=== PATIENT | female | born 1990 | race Caucasian/White ===

== ENCOUNTER 2020-05-06 22:42 | Emergency (ER) | payer SELFPAY ==
[~2020-05-06] VITALS: Ht 170.2 cm; Wt 68.0 kg
[2020-05-06] MEDS ORDERED: SODIUM CHLORIDE 0.9% 1,000 ML IV ONE ×2 (23:35→23:45)
[2020-05-06] MEDS ORDERED: LORAZEPAM 2MG/ML CPJ IV ONE (23:45)
[2020-05-06] MEDS ORDERED: FOLIC ACID 1 MG, THIAMINE HCL 100 MG, MVI, ADULT NO.1 10 ML in DEXTROSE 5% WATER 1,000 ML IV ONE ×4 (23:45)
[2020-05-07 00:27] LABS: BASOPHILS % 0.2 % (0.0-2.0); EOSINOPHILS % 0.1 % (0.0-5.0); HEMATOCRIT. 42.1 % (36.0-48.0); HEMOGLOBIN. 14.2 g/dL (12.0-16.0); MEAN CORPUSCULAR HEMOGLOBIN 31.4 pg (28.0-32.0); MEAN CORPUSCULAR VOLUME 92.9 fL (81.0-99.0); MEAN PLATELET VOLUME 8.8 fl (7.4-10.4); MONOCYTES % 4.7 % (2.0-8.0); PLATELET 161 x1000/uL (130-400); RED BLOOD CELL COUNT 4.53 mill/uL (4.2-5.4); RED CELL DISTRIBUTION WIDTH 14.1 % (11.6-14.6)
[2020-05-07 00:29] LABS: CHLORIDE 104 mEq/L (98-107)
[2020-05-07 00:34] LABS: ETHANOL BLOOD < 10 mg/dL
[2020-05-07 00:39] LABS: CREATINE KINASE 343 IU/L (26-192)
[2020-05-07 00:43] LABS: HCG SCREEN NEGATIVE
[2020-05-07 01:31] LABS: CLARITY URINE CLEAR (CLEAR); COLOR URINE YELLOW (YELLOW); KETONES URINE 1+ (NEGATIVE); LEUKOCYTE ESTERASE URINE NEGATIVE (NEGATIVE); NITRITE URINE NEGATIVE (NEGATIVE); OCCULT BLOOD URINE NEGATIVE (NEGATIVE); PROTEIN URINE TRACE (NEGATIVE); SPECIFIC GRAVITY URINE 1.022 (1.005-1.030); UROBILINOGEN URINE 0.2 E.U./dL (0.2-1.0)
[2020-05-07 01:34] LABS: PROTHROMBIN TIME 10.3 sec (9.6-11.0)
[2020-05-07 01:41] LABS: *BARBITURATES SCREEN URINE NEGATIVE (NEGATIVE); *BENZODIAZEPINES SCREEN URINE NEGATIVE (NEGATIVE)
[2020-05-07 01:42] LABS: METHADONE URINE SCREEN NEGATIVE (NEGATIVE); PHENCYCLIDINE URINE SCREEN NEGATIVE (NEGATIVE)
[2020-05-07 01:44] LABS: *AMPHETAMINES SCREEN URINE PRESUMTIVE POSITIVE (NEGATIVE); *COCAINE SCREEN URINE PRESUMTIVE POSITIVE (NEGATIVE); CANNABINOID URINE SCREEN PRESUMTIVE POSITIVE (NEGATIVE); OPIATES URINE SCREEN PRESUMTIVE POSITIVE (NEGATIVE)
[2020-05-07] MEDS ORDERED: LORAZEPAM 2MG/ML CPJ IV PRN (05:45)
[2020-05-07] MEDS ORDERED: ONDANSETRON HCL 4MG/2ML INJ IV PRN (05:45)
[2020-05-07] MEDS ORDERED: ACETAMINOPHEN 325MG TABLET PO PRN (05:45)
[2020-05-07] MEDS ORDERED: MAGNESIUM/ALUMINUM HYDROXIDE/SIMETHICONE 30ML UDC PO PRN (05:45)
[2020-05-07] MEDS ORDERED: CLONIDINE 0.1MG TABLET PO PRN (05:45)
[2020-05-07] MEDS ORDERED: AMLODIPINE 10MG TABLET PO SCH (05:45)
[2020-05-07] MEDS ORDERED: SODIUM CHLORIDE 0.9% 1,000 ML IV SCH (06:00)
[2020-05-07 08:33] VITALS: BP 125/89
[2020-05-08] MEDS ORDERED: MULTIVITAMINS,THER W-MINERALS TABLET PO SCH (09:00)
[2020-05-08] MEDS ORDERED: THIAMINE HCL 100MG TABLET PO SCH (09:00)
== END 2020-05-07 11:30 | disposition left against medical advice (07) ==
LOC: ER 22:42 → CANRESERV 05-07 07:21 → ENRESERV 05-07 07:21 → CANBEDREQ 05-07 09:45 → ER 05-07 11:30
DX: F10.239 Alcohol dependence with withdrawal, unspecified (principal); F19.10 Other psychoactive substance abuse, uncomplicated; G93.40 Encephalopathy, unspecified; R74.8 Abnormal levels of other serum enzymes; Z86.19 Personal history of other infectious and parasitic diseases
CPT/HCPCS: 36415; 70450; 71045; 80053; 80305; 80307; 80320; 80329; 81003; 82140; 82550; 83605; 83690; 84443; 84703; 85025; 85610; 93005; 96361; 96365; 96366; 96375; 99285; J2060; J3411; J3490; J7030; J7070; G0480